=== PATIENT | female | born 1995 | race Caucasian/White ===

== ENCOUNTER → 2024-06-12 | Outpatient (CLI) | payer MEDICAID, SELFPAY ==
--- NOTE | 2024-06-12 14:34 | XR_ITS ---
Examination: Foot, left, 3 views Technique: AP, oblique, lateral views foot, 3 views Date and time of exam: June 12, 2024 1456 hours INDICATIONS: Numbness in the left foot and heel region noticed beginning 2 weeks ago. FINDINGS: No fracture or dislocation No plantar posterior bony calcaneal spurs No cortical bone destruction or opaque foreign body IMPRESSION: No fracture or dislocation
== END | disposition home or self-care (01) ==
LOC: CDIM 14:27
PROVIDERS: PCP Nurse Practitioner Family; Referring Provider Nurse Practitioner Family; Visit Provider Nurse Practitioner Family
DX: R20.0 Anesthesia of skin (principal)
CPT/HCPCS: 73630

== ENCOUNTER → 2024-10-31 | Outpatient (CLI) | payer MEDICAID, SELFPAY ==
--- NOTE | 2024-10-31 11:00 | XR_ITS ---
Examination: Abdomen sonogram, complete Date and time of exam: October 31, 2024 at 1059 hours INDICATIONS: Right upper abdominal pain and vomiting beginning 2 months ago. Technique: Multiple real-time grayscale transabdominal sonographic images of the abdomen have been obtained. Findings: Normal gallbladder Normal common bile duct 0.3 cm Pancreatic head 1.8 cm Aorta not enlarged. Liver 12.2 cm smooth contour Normal hepatopedal portal venous flow Patent IVC Right kidney 11.0 cm renal cortex 1.6 cm Left kidney 10.9 cm cortex 1.7 cm Spleen 9.6 cm IMPRESSION: Normal gallbladder Fatty infiltration throughout the liver
--- NOTE | 2024-10-31 11:30 | XR_ITS ---
Examination: Breast ultrasound, unilateral, right complete Date and time of exam: October 31, 2024 1112 hours INDICATIONS: Palpable lump right breast and detected by physician on clinical examination 2 months ago Technique: Real-time conley scale ultrasonographic imaging performed right breast including all 4 quadrants as well as nipple retroareolar and axillary region. Findings: No cystic or solid mass IMPRESSION: No cystic or solid breast mass
== END | disposition home or self-care (01) ==
LOC: CDIM 10:33
PROVIDERS: PCP Internal Medicine
DX: N63.31 Unspecified lump in axillary tail of the right breast (principal); K76.0 Fatty (change of) liver, not elsewhere classified
CPT/HCPCS: 76641; 76700

== ENCOUNTER → 2024-12-19 | Outpatient (CLI) | payer MEDICAID, SELFPAY ==
--- NOTE | 2024-12-19 15:30 | XR_ITS ---
Examination: MRI right ankle, without contrast Date and time of exam: December 11, 2024, 1631 hours INDICATIONS: Ankle stiffness burning sensation and 18 in the Achilles tendon 13 years worse the last year Technique: Multiple axial sagittal and coronal images of the ankle have been obtained with the Siemens high-resolution 1.5 Janiya MRI scanner. Images obtained include T2-weighted fat-suppressed sagittal sections, TR 3500, TE 46, T2 weighted coronal fat suppressed images, TR 3050, TE 84, T2-weighted transverse fat suppressed images, TR 3260, TE 63, proton density transverse images, TR 4720 TE 46, and T1 weighted coronal images, TR 560, TE 13. Findings: Mild thickening of the Achilles tendon with mild marrow edema at the calcaneal insertion Mild plantar fasciitis Sinus Tarsi syndrome No occult fracture or avascular necrosis Anterior posterior inferior tibiofibular ligaments intact Mild sprain anterior talofibular ligament Significant strain posterior talar fibular ligament Tendinitis posterior tibial and flexor digitorum tendons IMPRESSION: Mild Achilles tendinosis including marrow edema at the calcaneal insertion Mild plantar fasciitis Moderate sinus Tarsi syndrome Significant stranding posterior talofibular ligament Tendinitis posterior tibial flexor digitorum tendons
== END | disposition home or self-care (01) ==
LOC: SMRI 15:05
PROVIDERS: PCP Internal Medicine; Referring Provider Podiatrist; Visit Provider Podiatrist
DX: M72.2 Plantar fascial fibromatosis (principal); M25.571 Pain in right ankle and joints of right foot; M76.821 Posterior tibial tendinitis, right leg; R60.9 Edema, unspecified
CPT/HCPCS: 73721